=== PATIENT | female | born 1975 | race Caucasian/White ===

== ENCOUNTER 2016-10-18 08:28 | Inpatient (IN) ==
[2016-10-18] MEDS ORDERED: Albuterol 2.5 MG/3 ML NEBULIZER IH ONE (08:49)
[2016-10-18] MEDS ORDERED: D5% in Lactated Ringers 1,000 ML IVC SCH (09:00)
[2016-10-18] MEDS ORDERED: Ringers Solution, Lactated 1,000 ML IVC SCH ×2 (09:15→14:00)
--- NOTE | 2016-10-18 09:15 | Anesthesia Evaluation PreOp ---
Date of Encounter: 10/18/16 Time of Encounter: 09:13 - Past History Planned Operation: tahbso Cardiac History: HTN Pulmonary History: Smoker, Pack/yr (26) FAMILY NURSE History: Seizures (none for a "long time", no meds) Other Medical History: Denies Any Significant HX Anesthesia History: No Prior Anesthetic Complications, Past Anesthesia (btl, lap aly, hta, leep) Test: Negative Alcohol Use: rarely Drug use: none Medications and Allergies Ondansetron ODT [Zofran ODT] 4 mg SL Q6HR PRN #8 tab.rapdis 10/14/16 [Rx] Allergies Penicillins [PCN] Allergy (Verified 07/23/15 13:14) Hives Sulfa (Sulfonamide Antibiotics) Allergy (Verified 07/23/15 13:14) Hives - Meds/Allergy Pre-op Review Medications Reviewed: Yes Allergies Reviewed: Yes Beta Blockers on Current Med List: No Anesthesia Results - Labs Laboratory Tests 07/18/16 10/11/16 10/11/16 06:23 09:34 09:34 Hgb 13.7 Hct 42.3 Plt Count 356 Sodium 137 Potassium 4.2 Creatinine 0.66 Serum , Qual Negative Anesthesia Exam O2 Sat Height 1.52 m Height 1.52 m Height 1.52 m Weight 77.111 kg Weight 77.111 kg Weight 77.111 kg O2 Sat by Pulse Oximetry 97 O2 Sat by Pulse Oximetry 97 Vital Signs Temp Pulse Resp BP Pulse Ox 98.6 F 77 18 134/76 97 10/18/16 08:46 10/18/16 08:46 10/18/16 08:46 10/18/16 08:46 10/18/16 08:46 Height: 1.52 Weight: 77 - HEENT Pupil (Motor): Pupils equal, EOMI Mallampati: II Teeth: Normal Oral Opening: Greater than 3 (good underbite) - FAMILY NURSE LOC: Oriented FAMILY NURSE Motor: Normal RUE, Normal LUE, Normal RLE, Normal LLE, Normal Face FAMILY NURSE Sensory: Normal: RUE, LUE, RLE, LLE, Face - Cardiac Rhythm: Regular Murmur: None - Pulmonary Breath Sounds: bilateral Clear Respiratory Effort: Symmetrical Anesthesia Assess/Plan ASA Score: 2 Modified [place] Scale for Level of Consciousness: Cooperative, oriented, and tranquil Anesthetic Plan: General, Regional Monitoring Plan: Standard Monitors Recovery Plan: PACU
[2016-10-18] MEDS ORDERED: *HR* Propofol 200 MG/20 ML VIAL IVP ONE (09:20)
[2016-10-18] MEDS ORDERED: *HR* Midazolam HCl 2 MG/2 ML VIAL ONE (09:20)
[2016-10-18] MEDS ORDERED: *HR* FentaNYL (PF) 100 MCG/2 ML VIAL ONE (09:20)
[2016-10-18] MEDS ORDERED: Lidocaine -MPF 2% 2 ML VIAL ONE (09:21)
[2016-10-18] MEDS ORDERED: Ondansetron 4 MG/2 ML VIAL ONE (09:21)
[2016-10-18] MEDS ORDERED: Dexamethasone 4 MG/ML VIAL ONE (09:21)
[2016-10-18] MEDS ORDERED: *HR* Rocuronium Bromide 50 MG/5 ML VIAL ONE ×2 (09:21→12:50)
[2016-10-18] MEDS ORDERED: Neostigmine Methylsulfate 3 MG/3 ML SYRINGE ONE (09:21)
[2016-10-18] MEDS ORDERED: *HR* HYDROmorphone (PF) 1 MG/ML SYRINGE IVP PRN (09:30)
[2016-10-18] MEDS ORDERED: *HR* Labetalol 100 MG/20 ML MDV IVP PRN (09:30)
[2016-10-18] MEDS ORDERED: *HR* Promethazine 25 MG/ML VIAL IVP PRN (09:30)
[2016-10-18] MEDS ORDERED: Clindamycin 900 MG/50 ML 900 MG/50 ML IV.SOLN IVPB ONE (09:36)
[2016-10-18] MEDS ORDERED: Gentamicin 120 MG in 0.9 % Sodium Chloride 100 ML IVPB ONE (09:36)
[2016-10-18] MEDS ORDERED: Lidocaine -MPF 4% 5 ML AMPUL ONE (09:42)
--- NOTE | 2016-10-18 09:50 | History & Physical Report ---
Date of Encounter: 10/18/16 Time of Encounter: 09:49 24 Hour HP Update - Instructions Instructions: If the History and Physical is less than 30 days old and was completed prior to A.M. admission and or procedure and has NOT been updated on calendar day of procedure please complete this update prior to performing procedure. - Update Patient reports changes in Medical Condition: No Changes in assessment/condition: No Changes in Medication: No Preop tests/diagnostics Reviewed: Yes Surgery Remains Indicated: Yes Consent for Planned Operative Procedure(s) Verified: Yes - Pre-Operative Checklist Preoperative Checklist Indicated: Yes Prophylactic Antibiotic Ordered: Yes Home Medications Include Beta Ruchi: No Beta Ruchi Taken Today (Day of Surgery): No Beta Ruchi Taken Yesterday (Day Prior to Surgery): No Is VTE Prophylaxis Indicated?: Yes
[2016-10-18] MEDS ORDERED: Bupivacaine/Clonidine Syringe 1 EACH SYRINGE ONE (11:00)
--- NOTE | 2016-10-18 11:47 | Anesthesia Procedures ---
Date of Encounter: 10/18/16 Time of Encounter: 11:45 Procedures: Anesthesia - Nerve Block Procedure Date: 10/18/16 Time: 11:46 Allergies/Adv Reactions: see chart Pre-op Diagnosis: menorrhagia Surgical Procedure: TAHBSO Checklist: Correct Patient Identifier, Correct procedure, History checked Blood Thinner: No Monitor Applied: EKG, BP, Pulse Oximetry Indication: Post Op Analgesia (request per surgeon) Pre-op Neuro Deficits: No Block Type: Other (bilat QL1 ) Catheter placed: No Sterile Technique: Yes Ultrasound used: Yes Anatomy identified: Yes Visual spread of Local: Yes Neuro Stimulation: No Blood on Needle Aspiration: No Smooth Injection of Local: Yes Pain with Injection of Local: No Prep: Chlorhexadine Needle: 21 x 100 mm Stimuplex Local: 0.25% Bupivicaine w/Clonidine 20 mcg/cc Volume (cc): 40 Number of Attempts: 1 Complications: None/effective block Vitals: see or note, block performed post indn
[2016-10-18] MEDS ORDERED: *HR* Morphine 10 MG/ML VIAL ONE (13:45)
[2016-10-18] MEDS ORDERED: Naloxone 0.4 MG/ML INJ IVP PRN (13:50)
--- NOTE | 2016-10-18 13:57 | OB/GYN Procedure Note ---
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 An incision was made into the abdomen down through the subcutaneous tissue, muscular fascia and peritoneum. Once inside the abdominal cavity, a Book Samuel retractor was placed to expose the pelvic cavity with lap sponges. The uterus was then identified and grasped on the fundus with a double-toothed tenaculum with upward traction. The right tube and ovary were surgically absent. The round ligaments on either side were identified and individually dissected and ligated with the Ligasure device. This allowed us to then create a bladder flap by both blunt and sharp dissection. The left fallopian tube and ovarian ligament were isolated through the broad ligament from the uterine body and ligated with the Ligasure divided as well. We then skeletonized the uterine vessels on either side and carefully dissected the bladder flap anteriorly. Posteriorly, the peritoneum was dissected down toward the uterosacral ligaments. Duane clamps were then placed at each isthmic portion of the cervical body junction where the uterine arteries adjoined the uterus. These were clamped, ligated and divided using #0 Vicryl suture. The remainder of the uterus was then removed by the [id number] technique using #0 Vicryl on all major pedicles. With removal of the uterus, the vaginal cuff was closed in the usual manner. Hemostasis was then inspected and secured throughout the entire area. The left ovary were left in situ. The lap sponges were then removed and the self- retaining retractor was removed. The patient tolerated the operation nicely. There were no complications associated with this surgical procedure to this point. The sponge count was correct times 2 at this time. The Chaves catheter was inspected and clear urine was noted. Having removed all instruments and packs, we then began closure of the abdomen. The fascia was closed with #0 Vicryl in a running continuous manner and the subcutaneous tissue was also closed with #3-0 Vicryl in interrupted manner. The skin was closed with #4-0 vicryl. The patient tolerated the operation nicely and was then taken to the Recovery Room in good condition.
--- NOTE | 2016-10-18 14:46 | Anesthesia Evaluation Post Op ---
Date of Encounter: 10/18/16 Time of Encounter: 14:45 - Vital Signs Vital Signs: Vital Signs/O2 Sat/Glucose, Most Current Temp Pulse Resp BP Pulse Ox 10/18/16 14:40 97.5 F L 81 14 126/74 94 L 10/18/16 14:30 97.5 F L 81 16 122/69 93 L 10/18/16 14:20 91 16 124/72 94 L 10/18/16 14:10 90 16 130/73 95 10/18/16 14:00 98.3 F 90 16 122/79 97 - Lungs Lungs: Clear Ascult./Percussion - Airway Airway: Non-obstructed - Cardiovascular Regular Rate - Mental Status Mental Status: Alert & Oriented, Answers Appropriately - Pain Pain Scale: 2 - Nausea Vomiting Nausea Vomiting: Not Present - Hydration Hydration: NPO - Discharge PostOp Status: Transfer Patient to floor
[2016-10-18] MEDS: *HR* OxyCODONE/APAP 5/325 TABLET PO PRN (18:35)
[2016-10-18] MEDS: Ibuprofen 600 MG TABLET PO PRN (20:54)
[2016-10-19 04:50] LABS: Basophils % 0.1 %; Hematocrit 35.7 % (35.3-44.9); Hemoglobin 11.8 g/dL (11.5-15.4); Immature Granulocytes % 0.4 % (0-4); Lymphocytes % 21.1 %; Mean Corpuscular HGB Conc 33.1 g/dL (31.6-35.5); Mean Corpuscular Hemoglobin 26.2 pg (28.0-33.3); Mean Corpuscular Volume 79.2 fL (83.0-100.0); Monocytes # 0.8 K/mcL (0.0-1.3); Monocytes % 5.8 %; Neutrophils # 10.4 K/mcL (1.6-8.9); Platelet Count 312 K/mcL (140-400); Red Blood Count 4.51 M/mcL (3.82-4.97); Red Cell Distribution Width 14.5 % (11.5-14.5); Segmented Neutrophils % 72.6 %
[2016-10-19] MEDS: *HR* OxyCODONE/APAP 5/325 TABLET PO PRN ×3 (06:11→16:19)
[2016-10-19] MEDS: Ibuprofen 600 MG TABLET PO PRN (15:01)
[2016-10-19 16:23] VITALS: BP 157/85
--- NOTE | 2016-10-19 16:39 | Discharge Summary ---
Date of Encounter: 10/19/16 Time of Encounter: 16:40 - Discharge Diagnosis (1) Status post hysterectomy Priority: Primary Status: Acute Comments: patient doing very well, states she wants to go home, ok for discharge, pain meds sent to pharm and printed, will f/u in 2 weeks in office - Discharge Medications Home Medications: No Known Home Drugs 10/18/16 [History] Allergies/Adverse Reactions: Allergies Penicillins [PCN] Allergy (Verified 10/18/16 10:07) See Comments childhood reaction Sulfa (Sulfonamide Antibiotics) Allergy (Verified 10/18/16 10:07) Itching acetaminophen [From Vicodin] Adverse Reaction (Verified 10/18/16 10:07) Vomiting hydrocodone [From Vicodin] Adverse Reaction (Verified 10/18/16 10:07) Vomiting Data Procedures and tests throughout hospitalization: Laboratory Tests 10/19/16 04:22 WBC 14.2 H RBC 4.51 Hgb 11.8 Hct 35.7 MCV 79.2 L MCH 26.2 L MCHC 33.1 RDW 14.5 Plt Count 312 MPV 10.0 Immature Gran % 0.4 Seg Neutrophils % 72.6 Lymphocytes % 21.1 Monocytes % 5.8 Eosinophils % 0.0 Basophils % 0.1 Neutrophils # 10.4 H Lymphocytes # 3.0 Monocytes # 0.8 Eosinophils # 0.0 Basophils # 0.0 Labs on day of discharge: Labs from last 24 hours 10/19/16 04:22 WBC 14.2 H RBC 4.51 Hgb 11.8 Hct 35.7 MCV 79.2 L MCH 26.2 L MCHC 33.1 RDW 14.5 Plt Count 312 MPV 10.0 Immature Gran % 0.4 Seg Neutrophils % 72.6 Lymphocytes % 21.1 Monocytes % 5.8 Eosinophils % 0.0 Basophils % 0.1 Neutrophils # 10.4 H Lymphocytes # 3.0 Monocytes # 0.8 Eosinophils # 0.0 Basophils # 0.0 Date of admission: 10/18/16 15:05 Primary care physician: PCP NO - Patient Status Disposition: Home, Self-Care Condition: Good Functional capacity at discharge: independent ambulation Overall status at discharge: patient is progressing back to baseline - Discharge Instructions Follow Up With: NO,PCP [Primary Care Provider] - Hospital Course GIVER Reason for admission: pelvic pain, other (fiborid uterus) Time Attestation: Total time spent providing and/or coordinating discharge services: Exam - Constitutional Vitals: Temp Pulse Resp BP Pulse Ox 98.6 F 82 16 157/85 95 10/19/16 16:00 10/19/16 16:00 10/19/16 16:00 10/19/16 16:00 10/19/16 07:45 General appearance IM: A&O X 3 - Respiratory Respiratory exam: Present: CTAB - Cardiovascular Cardiovascular exam IM: Present: RRR - GI/Abdominal GI/Abdominal exam IM: normal bowel sounds Incision: intact - Rectal Rectal exam: deferred - Extremities Exam Extremities exam IM: Present: warm - VTE Documentation of Mechanical Device: Intermittent pneumatic compression device
== END 2016-10-19 17:17 | disposition home or self-care (01) | DRG 743 ==
LOC: SAMDAY 08:28 → 1NENUOBS 15:05
PROVIDERS: ADMIT Student in an Organized Health Care Education/Training Program; ATTEND Student in an Organized Health Care Education/Training Program

== ENCOUNTER 2016-11-03 19:14 | Observation (INO) ==
[2016-11-03] MEDS ORDERED: Albuterol 2.5 MG/3 ML NEBULIZER ONE (22:50)
[2016-11-03] MEDS ORDERED: Albuterol 2.5 MG/3 ML NEBULIZER IH ONE (22:51)
[2016-11-03] MEDS ORDERED: Ringers Solution, Lactated 1,000 ML IVC SCH (23:00)
--- NOTE | 2016-11-03 23:18 | Anesthesia Evaluation PreOp ---
Date of Encounter: 11/03/16 Time of Encounter: 23:15 - Past History Planned Operation: Cystoscopy Possible Repair VesicoVaginal Fistula Cardiac History: HTN Pulmonary History: Smoker LEAN SPECIALIST History: Seizures Other Medical History: Denies Any Significant HX Anesthesia History: No Prior Anesthetic Complications : No (MAUREEN) Test: Negative Alcohol Use: rarely Drug use: none Medications and Allergies Ibuprofen [Motrin] 600 mg PO Q6HR PRN #60 tab 10/19/16 [Rx] Allergies Penicillins [PCN] Allergy (Verified 11/03/16 12:40) See Comments childhood reaction Sulfa (Sulfonamide Antibiotics) Allergy (Verified 11/03/16 12:40) Itching acetaminophen [From Vicodin] Adverse Reaction (Verified 11/03/16 12:40) Vomiting hydrocodone [From Vicodin] Adverse Reaction (Verified 11/03/16 12:40) Vomiting - Meds/Allergy Pre-op Review Medications Reviewed: Yes Allergies Reviewed: Yes Beta Blockers on Current Med List: No Anesthesia Results - Labs Laboratory Tests 10/19/16 04:22 Hgb 11.8 Hct 35.7 Plt Count 312 Anesthesia Exam Vital Signs/O2 Sat/Glucose, Most Current Temp Pulse Resp BP Pulse Ox 11/03/16 20:40 98.5 F 78 14 130/84 98 Height: 4'11 Weight: 167 lbs NPO (# of Hours): MN Pain Scale: 0 - HEENT Pupil (Motor): Pupils equal, EOMI Mallampati: II Teeth: Normal Oral Opening: Greater than 3 - LEAN SPECIALIST LOC: Oriented LEAN SPECIALIST Motor: Normal RUE, Normal LUE, Normal RLE, Normal LLE, Normal Face LEAN SPECIALIST Sensory: Normal: RUE, LUE, RLE, LLE, Face - Cardiac Rhythm: Regular Murmur: None JVD: No Carotid Bruit: No - Pulmonary Breath Sounds: bilateral Clear Respiratory Effort: Symmetrical Anesthesia Assess/Plan ASA Score: 2, E Modified [place] Scale for Level of Consciousness: Cooperative, oriented, and tranquil Anesthetic Plan: General Monitoring Plan: Standard Monitors Recovery Plan: PACU (Discussed GA, agrees to proceed)
--- NOTE | 2016-11-03 23:20 | History & Physical Report ---
Date of Encounter: 11/03/16 Time of Encounter: 23:18 24 Hour HP Update - Instructions Instructions: If the History and Physical is less than 30 days old and was completed prior to A.M. admission and or procedure and has NOT been updated on calendar day of procedure please complete this update prior to performing procedure. - Update Patient reports changes in Medical Condition: No Changes in assessment/condition: Yes Changes in Medication: No Preop tests/diagnostics Reviewed: Yes Surgery Remains Indicated: Yes Consent for Planned Operative Procedure(s) Verified: Yes - Pre-Operative Checklist Preoperative Checklist Indicated: Yes Prophylactic Antibiotic Ordered: Yes Home Medications Include Beta Ruchi: No Beta Ruchi Taken Today (Day of Surgery): No Beta Ruchi Taken Yesterday (Day Prior to Surgery): No Is VTE Prophylaxis Indicated?: Yes
[2016-11-03] MEDS ORDERED: *HR* Midazolam HCl 2 MG/2 ML VIAL ONE (23:26)
[2016-11-03] MEDS ORDERED: *HR* FentaNYL (PF) 100 MCG/2 ML VIAL ONE (23:26)
[2016-11-03] MEDS ORDERED: *HR* Propofol 200 MG/20 ML VIAL IVP ONE (23:26)
[2016-11-03] MEDS ORDERED: *HR* Succinylcholine 200 MG/10 ML VIAL IVP ONE (23:27)
[2016-11-03] MEDS ORDERED: Lidocaine -MPF 2% 2 ML VIAL ONE (23:27)
[2016-11-03] MEDS ORDERED: Ondansetron 4 MG/2 ML VIAL ONE (23:27)
[2016-11-03] MEDS ORDERED: Lidocaine -MPF 4% 5 ML AMPUL ONE (23:29)
[2016-11-03] MEDS ORDERED: Famotidine 20 MG/2 ML VIAL ONE (23:32)
[2016-11-03] MEDS ORDERED: Bupivacaine/EPI 1:200k 0.25%PF 30 ML VIAL ONE (23:37)
[2016-11-04] MEDS ORDERED: *HR* FentaNYL (PF) 100 MCG/2 ML VIAL ONE ×2 (01:09→01:46)
[2016-11-04] MEDS ORDERED: *HR* HYDROmorphone (PF) 1 MG/ML SYRINGE IVP PRN (01:41)
[2016-11-04] MEDS ORDERED: *HR* HYDROmorphone 2 MG/ML SYRINGE ONE (03:16)
[2016-11-04] MEDS ORDERED: traMADol 50 MG TABLET PO PRN (06:27)
--- NOTE | 2016-11-04 07:10 | Anesthesia Evaluation Post Op ---
Date of Encounter: 11/04/16 Time of Encounter: 05:50 - Vital Signs Vital Signs: Vital Signs/O2 Sat/Glucose, Most Current Temp Pulse Resp BP Pulse Ox 11/04/16 06:48 98.8 F 90 13 122/80 100 11/04/16 06:09 98.5 F 92 16 133/83 100 11/04/16 05:52 97.2 F L 98 18 142/86 100 11/04/16 05:42 100 16 145/84 100 11/04/16 05:32 97.5 F L 110 16 150/90 100 11/04/16 05:22 106 16 142/83 100 11/04/16 05:12 116 16 148/92 100 11/04/16 05:02 97.8 F 78 10 125/69 100 - Lungs Lungs: Clear Ascult./Percussion - Airway Airway: Non-obstructed - Cardiovascular Regular Rate - Mental Status Mental Status: Asleep with brisk response to light stimulation - Pain Pain Scale: 0 - Nausea Vomiting Nausea Vomiting: Not Present - Hydration Hydration: NPO - Discharge PostOp Status: Transfer Patient to floor
[2016-11-04 08:06] VITALS: BP 115/75
[2016-11-04] MEDS ORDERED: Ibuprofen 600 MG TABLET PO PRN (08:46)
--- NOTE | 2016-11-04 09:38 | OB/GYN Procedure Note ---
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 Narrative: The patient was taken to the OR where general anesthesia was easily obtained. The patient was then prepped and draped in a sterile fashion and placed in dorsal lithotomy position. Adequate exposure of the fistula was made and the fistula size was noted. A cytoscopy was done and showed the defect in the bladder in the posterior wall well away from the trigone. I then turned my attention back to the vagina. The avascular area around the fistula tract was excised and the entire tract was dissected. I was able to delineate the layers of the bladder wall and vagina as well as mobilize the layers. The bladder mucosa was identified and closed with interrupted 3-0 vicryl suture without tension. All sutures were kept in the bladder mucosa. The bladder muscle was closed as well with 3-0 vicryl. With this closure, the fistula was closed over. I performed a cystoscopy and it showed that the fistula was closed over. No sutures were observed to be through the mucosa. I asked the Anesthesiologist to give her methylene blue and before long blue dye was seen flowing through both ureters. I then turned my attention to the vagina mucosa which was closed in interrupted fashion with 3-0 vicryl. The surgical site was hemostatic, there was no leaking of urine observed after several minutes of observation. A car catheter was placed and will remain for 2-4 weeks. The patient tolerated the procedure well and was taken to the recovery room in stable condition.
[2016-11-04] MEDS ORDERED: Ondansetron 4 MG/2 ML VIAL IVP PRN (09:49)
--- NOTE | 2016-11-04 09:53 | Discharge Summary ---
Date of Encounter: 11/04/16 Time of Encounter: 08:30 - Discharge Medications Home Medications: Ibuprofen [Motrin] 600 mg PO Q6HR PRN #60 tab 10/19/16 [Rx] Ciprofloxacin HCl [Cipro] 250 mg PO BID #20 tab 11/10/16 [Rx] Oxycodone HCl/Acetaminophen [Percocet 5-325 mg Tablet] 1 each PO PRN PRN [History] Phenazopyridine [Pyridium] 100 mg PO TID #6 tablet 11/10/16 [Rx] Allergies/Adverse Reactions: Allergies Penicillins [PCN] Allergy (Verified 11/03/16 12:40) See Comments childhood reaction Sulfa (Sulfonamide Antibiotics) Allergy (Verified 11/03/16 12:40) Itching acetaminophen [From Vicodin] Adverse Reaction (Verified 11/03/16 12:40) Vomiting hydrocodone [From Vicodin] Adverse Reaction (Verified 11/03/16 12:40) Vomiting Date of admission: 11/03/16 20:01 Primary care physician: PCP NO - Patient Status Disposition: Home, Self-Care Condition: Good Functional capacity at discharge: independent ambulation Overall status at discharge: patient is progressing back to baseline - Discharge Instructions Instructions: Chaves Catheter Placement and Care (DC), Vesicovaginal Fistula Repair (DC), Urinary Leg Bag (GEN) Follow Up With: Jame Martin MD [Partnered Physician] - (Please call on Saturday so you can schedule your follow up. ) NO,PCP [Primary Care Provider] - Forms: Work/School Release Additional Instructions: There are many types of gynecologic surgery. Below, you will find groups of instructions related to caring for yourself after your procedure. there may be instructions that do not apply to you depending on the procedure that you had. Before you go home, your nurse will explain these instructions and let you know any special instructions that you may have. MEDICATIONS: -Continue taking your home medications as prescribed by your doctor prior to surgery. You will be notified of any changes in home medications before leaving the hospital. -A prescription for pain medication may be given to you. Take it as directed. It is important to control your pain during recovery. -Do not stop taking antibiotics if they were prescribed for you. Take them until they are all gone. Antibiotics are sometimes used to prevent infection after surgery. BOWEL MOVEMENTS: -You may not have a bowel movement for a few days after surgery. The first one may be difficult to pass. Do not strain in order to go, and allow yourself plenty of time when going for the first time following your surgery. -To help soften your stool, eat a diet high in fiber. This includes foods such as cereals, whole grain breads and vegetables. You can also take a fiber supplement or stool softeners, which your provider may prescribe for you. DIET: -Your appetite may be decreased following surgery. You will be eating regular food before you are discharged from the hospital. Start out with small amounts of food and increase your meals as you are able to tolerate them without feeling nauseated. -Eat healthy foods to help you heal more quickly and increase your energy. Avoid foods that cause gas, as this will make you feel uncomfortable. -Drink 6-8 glasses of water each day. SMOKING: -Smoking increases your chances of post-surgical complications. It is never too late to quit. Ask your nurse or provider for information to help you quit smoking. ACTIVITY: -Restrict yourself to light activity and increase your activity level slowly, resting frequently. -Be aware your pain medication may cause drowsiness. -It usually takes 4-8 weeks for the body to heal. -You may walk slowly. Limit stair climbing. Do not exercise until the provider tells you it is safe to do so. -No douching, tampons or sex for 6 weeks. This will allow time for healing. You can no longer get after having a hysterectomy but will still need to protect yourself from sexually transmitted diseases. -Lift nothing heavier than 10-15 pounds for 2 weeks. -You can drive in about 2 weeks, unless otherwise instructed by your provider. -You can expect to return to work or school and other normal activities in about 6 weeks or as directed by your provider. -When you get home, you may shower normally. If you have an incision, wash the area with soap and water and dry thoroughly after showering. You may have steri -strips (thin strips of tape used to help hold the incision together while it heals). If these are present, do not remove them. Keep the area of your incision clean and dry. STRESS AND MOOD -A hysterectomy may change the way that you view yourself. These are normal feelings. Talk to your family and health care provider about these feelings. If you feel depressed, seek counseling or talk to your provider about treatment options. It is important in the healing process to have a healthy mind. WHEN TO CALL THE DOCTOR: -If your stitches are swollen, red or have drainage coming from them or if you notice them coming apart. It is normal for your incision to feel numb up to a year. -If you are having chills, fever or a reaction to your medicine. -If your incision is bleeding or you have increased pain in your incision. -If within an hour you have soaked a sanitary pad with vaginal bleeding. -If you are unable to urinate or it has been 4-6 hours since you have urinated. Also, if you have burning with urination or feel like you cant completely empty your bladder; call your provider for further instructions. -If you have a smelly discharge coming from your incision or vagina. -If you have any questions about your surgery or medications. If you have difficulty breathing, chest pain, uncontrolled bleeding or any other emergency, call 911 or report to the nearest emergency department immediately. Hospital Course MANAGER STATISTICAL PROGRAMMING Time Attestation: Total time spent providing and/or coordinating discharge services: Exam - Constitutional Vitals: Temp Pulse Resp BP Pulse Ox 98.8 F 98 16 115/75 99 11/04/16 06:48 11/04/16 08:05 11/04/16 08:05 11/04/16 08:05 11/04/16 08:05 General appearance IM: A&O X 3 - Respiratory Respiratory exam: Present: CTAB - Cardiovascular Cardiovascular exam IM: Present: RRR - GI/Abdominal GI/Abdominal exam IM: normal bowel sounds
--- NOTE | 2016-11-04 09:57 | OB/GYN History & Physical ---
Date of Encounter: 11/04/16 Time of Encounter: 02:00 Assessment and Plan (1) Vesicovaginal fistula Status: Acute I explained what having a vesicovaginal fistula means and counseled her that I will be taking her to surgery to see if it can be repaired. I recommended doing a cystoscopy and fistula repair using the Lastko technique provided it's not in the trigone. I'll touch base with Dr Fowler who is the Urologist education dean. History of Present Illness HPI: Ms. Zuñiga is a 40 year old female s/p MAUREEN on 10/18 who presented to the ED with complaints of urinary leakage. She reports that it started 2 days ago and has been getting worse. She reports that within minutes her pad is soaked. She does not report bleeding, pelvic pain, foul smelling discharge, fevers, chills, nausea and vomiting. [place] [facility] did a SSE and found urine in the vault and when abdominal pressure was applied suprapubically, more urine leaked into the vagina. When the ED physician contacted me and told me he could not see an actual opening, I asked that she get a car and see me in the office this coming Thursday 03/08. A few hrs later, [facility] called me and said the patient presented there again because the incontinence had worsened and the ER physician confirmed the findings. I asked that he transfer her to [facility] for surgical management. Past Med Surg Social Fam HX - Past Medical History Medical history: GERD, hypertension, other Psychiatric history: depression - Past Surgical History Surgical History: cholecystectomy, hysterectomy - Social History Smoking Status: Current every day smoker Smokeless Tobacco Status: No Alcohol use: rarely Drug use: none Medications and Allergies Ibuprofen [Motrin] 600 mg PO Q6HR PRN #60 tab 10/19/16 [Rx] Allergies Penicillins [PCN] Allergy (Verified 11/03/16 12:40) See Comments childhood reaction Sulfa (Sulfonamide Antibiotics) Allergy (Verified 11/03/16 12:40) Itching acetaminophen [From Vicodin] Adverse Reaction (Verified 11/03/16 12:40) Vomiting hydrocodone [From Vicodin] Adverse Reaction (Verified 11/03/16 12:40) Vomiting Review of System OB All systems PM: reviewed and no additional remarkable complaints except as stated Exam - Vital Signs Vital signs: Initial Vital Signs Temp Pulse Resp BP Pulse Ox 98.5 F 78 14 130/84 98 11/03/16 20:40 11/03/16 20:40 11/03/16 20:40 11/03/16 20:40 11/03/16 20:40 - Constitutional Constitutional: no acute distress - HEENT HEENT: PERRL - Neck Neck exam: supple - Lungs Respiratory exam: CTAB - Cardiovascular Cardiovascular exam: RRR - Abdomen Abdomen: Present: bowel sounds normal - Extremities Extremities exam: warm Results All other labs normal.
== END 2016-11-04 13:42 | disposition home or self-care (01) ==
LOC: 3BNU
PROVIDERS: ADMIT Student in an Organized Health Care Education/Training Program; ATTEND Student in an Organized Health Care Education/Training Program

== ENCOUNTER 2016-12-03 06:21 | Inpatient (IN) ==
[2016-12-03] MEDS ORDERED: Albuterol 2.5 MG/3 ML NEBULIZER IH ONE (06:36)
[2016-12-03] MEDS ORDERED: Lidocaine -MPF 1% 2 ML VIAL ID ONE (06:36)
[2016-12-03] MEDS ORDERED: Levofloxacin 500 MG/100 ML 500 MG/100 ML BAG IVPB ONE (06:36)
[2016-12-03] MEDS ORDERED: Ringers Solution, Lactated 1,000 ML IVC SCH (06:45)
--- NOTE | 2016-12-03 07:04 | Anesthesia Evaluation PreOp ---
Date of Encounter: 12/03/16 Time of Encounter: 07:02 - Past History Planned Operation: Vesicovaginal Fistula Repair Cardiac History: Denies any Significant Hx Pulmonary History: Smoker (26 years) PATIENT ACCESS DIRECTOR History: Seizures (remote history, not medically treated) Other Medical History: Denies Any Significant HX Anesthesia History: No Prior Anesthetic Complications, Past Anesthesia ( hysterectomy) Alcohol Use: none Drug use: none Medications and Allergies Ciprofloxacin [Cipro] 250 mg PO BID 11/15/16 [History] Ibuprofen [Motrin] 600 mg PO Q6HR PRN 11/15/16 [History] OxyCODONE/APAP 5/325 [Percocet 5/325 MG] 1 each PO Q6HR PRN 11/15/16 [History] Cefuroxime PO [Ceftin] 500 mg PO Q12HR #20 tablet 11/19/16 [Rx] Allergies Penicillins [PCN] Allergy (Verified 11/03/16 12:40) See Comments childhood reaction Sulfa (Sulfonamide Antibiotics) Allergy (Verified 11/03/16 12:40) Itching acetaminophen [From Vicodin] Adverse Reaction (Verified 11/03/16 12:40) Vomiting hydrocodone [From Vicodin] Adverse Reaction (Verified 11/03/16 12:40) Vomiting - Meds/Allergy Pre-op Review Medications Reviewed: Yes Allergies Reviewed: Yes Beta Blockers on Current Med List: No Anesthesia Results - Labs Laboratory Tests 07/18/16 11/18/16 11/18/16 06:23 23:49 23:49 WBC 5.1 Hgb 11.5 Hct 34.3 L Plt Count 246 PT 12.2 H INR 1.1 Sodium 138 Potassium 3.4 L BUN 8 Creatinine 0.72 - Imaging EKG: report reviewed (07/18/2016 SR) Anesthesia Exam O2 Sat Height 1.52 m Height 1.52 m Height 1.52 m Weight 76.657 kg Weight 76.657 kg Weight 76.657 kg O2 Sat by Pulse Oximetry 97 Vital Signs Temp Pulse Resp BP Pulse Ox 97.7 F 84 16 116/69 97 12/03/16 07:12 12/03/16 07:12 12/03/16 07:12 12/03/16 07:12 12/03/16 07:12 Height: 5' Weight: 169 lbs NPO (# of Hours): 8 Pain Scale: 0 Pain Scale Used: Numeric (1 - 10) - HEENT Pupil (Motor): EOMI Mallampati: II Teeth: Normal Oral Opening: Greater than 3 - PATIENT ACCESS DIRECTOR LOC: Oriented PATIENT ACCESS DIRECTOR Motor: Normal RUE, Normal LUE, Normal RLE, Normal LLE, Normal Face PATIENT ACCESS DIRECTOR Sensory: Normal: RUE, LUE, RLE, LLE, Face - Cardiac Rhythm: Regular Murmur: None - Pulmonary Breath Sounds: bilateral Clear Respiratory Effort: Symmetrical Anesthesia Assess/Plan ASA Score: 2 Modified Vannessa Scale for Level of Consciousness: Cooperative, oriented, and tranquil Anesthetic Plan: General Monitoring Plan: Standard Monitors Recovery Plan: PACU
[2016-12-03] MEDS ORDERED: *HR* FentaNYL (PF) 100 MCG/2 ML VIAL ONE ×2 (07:06→08:41)
[2016-12-03] MEDS ORDERED: *HR* Midazolam HCl 2 MG/2 ML VIAL ONE (07:07)
[2016-12-03] MEDS ORDERED: *HR* Propofol 200 MG/20 ML VIAL IVP ONE (07:07)
[2016-12-03] MEDS ORDERED: *HR* Rocuronium Bromide 50 MG/5 ML VIAL ONE (07:09)
[2016-12-03] MEDS ORDERED: *HR* Succinylcholine 200 MG/10 ML VIAL IVP ONE (07:09)
[2016-12-03] MEDS ORDERED: *HR* Phenylephrine 10 MG/ML VIAL ONE (07:10)
--- NOTE | 2016-12-03 07:11 | History & Physical Report ---
Date of Encounter: 12/03/16 Time of Encounter: 07:11 24 Hour HP Update - Instructions Instructions: If the History and Physical is less than 30 days old and was completed prior to A.M. admission and or procedure and has NOT been updated on calendar day of procedure please complete this update prior to performing procedure. - Update Patient reports changes in Medical Condition: No Changes in examination, assessment, or condition: No Changes in Medication: No Preop tests/diagnostics Reviewed: Yes Surgery Remains Indicated: Yes Consent for Planned Operative Procedure(s) Verified: Yes - Pre-Operative Checklist Preoperative Checklist Indicated: Yes Prophylactic Antibiotic Ordered: Yes Is VTE Prophylaxis Indicated?: Yes
[2016-12-03] MEDS ORDERED: Lidocaine -MPF 4% 5 ML AMPUL ONE (07:15)
[2016-12-03] MEDS ORDERED: Ondansetron 4 MG/2 ML VIAL ONE (08:11)
[2016-12-03] MEDS ORDERED: Dexamethasone 4 MG/ML VIAL ONE (08:11)
[2016-12-03] MEDS ORDERED: *HR* HYDROmorphone (PF) 1 MG/ML SYRINGE IVP PRN (08:25)
[2016-12-03] MEDS ORDERED: *HR* Promethazine 25 MG/ML VIAL IVP PRN (08:25)
[2016-12-03] MEDS ORDERED: *HR* HYDROmorphone 2 MG/ML SYRINGE ONE (09:04)
[2016-12-03] MEDS ORDERED: Neostigmine Methylsulfate 3 MG/3 ML SYRINGE ONE (09:16)
--- NOTE | 2016-12-03 11:32 | Operative Note ---
Date of procedure: 12/03/16 Pre-op diagnosis: Vesicovaginal fistula Post-op diagnosis: same Procedure: Vesicovaginal fistula repair abdominal approach, cystoscopy Anesthesia: DOMO Surgeon: Arnold Camp Flute Polisher: Demarco Morgan Specimen: Vesicovaginal fistula Condition: stable Disposition: PACU Procedure in Detail: Patient was prepped and draped in normal sterile fashion. Timeout procedure performed. At this point I then inserted the cystoscope into the patient's bladder. I could easily visualize the fistula in the posterior trigone just cranially to the ureteral orifices. I placed a Chaves catheter in the patient's bladder. Through the patient's prior Pfannenstiel incision I made an incision down to the fascia. The fascia was then incised. The fascia was then elevated off the rectus muscle. Access to the peritoneal cavity was then obtained using Metzenbaum scissors. Small amount of adhesions from the omentum were noted. I did note that I had excellent omental length which would come in handy for the interposition later. At this point the Bookwalter retractor was placed in standard fashion. Catheter was palpated within the bladder. Then made an incision in the bladder. The incision was carried posteriorly towards the fistulous opening. The left ovary was adherent to the left lateral aspect of the bladder. This was carefully dissected off. The area between the bladder and the vagina densely adherent and inflamed. Careful dissection was performed to separate the 2. There was a small sigmoid adhesion which was taken down. We then placed a sizer into the vagina. Which aided in our palpation of the vaginal opening. The ureters were quite close to the opening. We then placed open-ended ureteral catheters in each ureteral orifice. The vaginal opening was closed using 2-0 Vicryl. Secondary to the inflammation was only able to get a single layer of closure on the vaginal mucosa. At this point I then placed 3 mL of Evaceal onto the vaginal incision. We then removed part of the Bookwalter and obtained our omental flap. I placed one stitch in the omentum and then stitched this down to the notch between the bladder and the vagina. This sufficiently covered the vaginal incision. The edges of the bladder where the fistula was present were excised. This was sent for pathological evaluation. I then proceeded to reapproximate the bladder mucosa using a running 4-0 Monocryl. I carried this all the way around the bladder. 18- Romansh catheter was then placed in the bladder. I then added a second layer of closure starting at the anterior aspect of the bladder carrying as far posteriorly as I felt safe. 7 MARGARETH drain was then placed. The abdominal muscle was then reapproximated using 3-0 Vicryl. Fascia was then closed using a running looped 0 PDS. Subcutaneous tissue was then closed using running 3-0 Vicryl. This was done after the subcutaneous tissue was irrigated. Skin was closed using brian.
[2016-12-03] MEDS ORDERED: *HR* Morphine 2 MG/ML SYRINGE IVP PRN (11:54)
[2016-12-03] MEDS ORDERED: *HR* Belladonna Alkaloids/Opium 60 MG RECTAL SUPPOSITORY RC PRN (11:54)
[2016-12-03] MEDS ORDERED: *HR* Promethazine 25 MG/ML VIAL IV PRN (11:54)
[2016-12-03] MEDS ORDERED: Naloxone 0.4 MG/ML INJ IVP PRN (11:54)
--- NOTE | 2016-12-03 11:56 | Anesthesia Evaluation Post Op ---
Date of Encounter: 12/03/16 Time of Encounter: 11:45 - Vital Signs Vital Signs: Last Vital Signs Temp 98.4 F 12/03/16 11:42 Pulse 95 12/03/16 11:42 Resp 12 12/03/16 11:42 BP 147/88 12/03/16 11:42 Pulse Ox 98 12/03/16 11:42 - Lungs Lungs: Clear Ascult./Percussion - Airway Airway: Non-obstructed - Cardiovascular Regular Rate - Mental Status Mental Status: Alert & Oriented, Answers Appropriately - Pain Pain Scale: 6 Pain Scale used: Numeric (1 - 10) - Nausea Vomiting Nausea Vomiting: Not Present - Hydration Hydration: Ice chips, Chaves catheter - Discharge PostOp Status: Transfer Patient to floor Attestation: Patient communicative and alert. Meets criteria for floor transfer.
[2016-12-03] MEDS: 0.9 % Sodium Chloride 1,000 ML IVC SCH ×2 (12:22→20:06)
[2016-12-03] MEDS: Hyoscyamine SL 0.125 MG TAB.SUBL SL SCH ×2 (15:37→22:04)
[2016-12-03] MEDS: *HR* OxyCODONE/APAP 5/325 TABLET PO PRN (22:07)
[2016-12-03] MEDS: Nicotine 21 MG PATCH.TD24 TD SCH (22:46)
[2016-12-04] MEDS: *HR* OxyCODONE/APAP 5/325 TABLET PO PRN ×4 (02:59→20:59)
[2016-12-04 06:26] LABS: Basophils % 0.3 %; Hematocrit 33.7 % (35.3-44.9); Hemoglobin 10.9 g/dL (11.5-15.4); Immature Granulocytes % 0.4 % (0-4); Lymphocytes # 2.8 K/mcL (0.6-4.6); Lymphocytes % 25.1 %; Mean Corpuscular HGB Conc 32.3 g/dL (31.6-35.5); Mean Corpuscular Hemoglobin 24.9 pg (28.0-33.3); Mean Corpuscular Volume 77.1 fL (83.0-100.0); Mean Platelet Volume 9.9 fL (9.4-12.4); Monocytes # 0.7 K/mcL (0.0-1.3); Monocytes % 5.8 %; Neutrophils # 7.7 K/mcL (1.6-8.9); Platelet Count 343 K/mcL (140-400); Red Blood Count 4.37 M/mcL (3.82-4.97); Red Cell Distribution Width 14.2 % (11.5-14.5); Segmented Neutrophils % 68.4 %
[2016-12-04 06:32] LABS: BUN/Creatinine Ratio 13 (6-26); Blood Urea Nitrogen 9 mg/dL (7-20); Calcium 8.3 mg/dL (8.6-10.8); Carbon Dioxide 24 mEq/L (19-29); Chloride 104 mEq/L (98-109); Glucose 125 mg/dL (70-99); Osmolality,Calculated 280 (280-300); Potassium 3.5 mEq/L (3.5-4.5); Sodium 135 mEq/L (136-145); eGFR For African Americans > 60 (> 60); eGFR For Non-African Americans > 60 (> 60)
--- NOTE | 2016-12-04 07:33 | Urology Progress Note ---
Date of Encounter: 12/04/16 Time of Encounter: 07:31 - Assessment and Plan (1) Vesicovaginal fistula Current Visit: Yes Status: Acute Assessment and plan: continue ambulation. IS as needed. regular diet. catheter will stay in place for at least 2 weeks becuase of recent bladder surgery Progress Note Narrative: POD 1 from vesicovaginal fistula repair. pain better. iv came out last night. jodie liquids and a little solids Objective Initial Vital Signs Temp Pulse Resp BP Pulse Ox 97.7 F 84 16 116/69 97 12/03/16 07:12 12/03/16 07:12 12/03/16 07:12 12/03/16 07:12 12/03/16 07:12 - General physical appearance Present: well developed - Abdomen Present: soft - Labs 12/04/16 06:06 12/04/16 06:06 Diabetes panel 12/04/16 Range/Units 06:06 Sodium 135 L (136-145) mEq/L Potassium 3.5 (3.5-4.5) mEq/L Chloride 104 (98-109) mEq/L Carbon Dioxide 24 (19-29) mEq/L BUN 9 (7-20) mg/dL Creatinine 0.67 (0.57-1.11) mg/dL Glucose 125 H (70-99) mg/dL Calcium 8.3 L (8.6-10.8) mg/dL Calcium panel 12/04/16 Range/Units 06:06 Calcium 8.3 L (8.6-10.8) mg/dL Pituitary panel 12/04/16 Range/Units 06:06 Sodium 135 L (136-145) mEq/L Potassium 3.5 (3.5-4.5) mEq/L Chloride 104 (98-109) mEq/L Carbon Dioxide 24 (19-29) mEq/L BUN 9 (7-20) mg/dL Creatinine 0.67 (0.57-1.11) mg/dL Glucose 125 H (70-99) mg/dL Calcium 8.3 L (8.6-10.8) mg/dL Adrenal panel 12/04/16 Range/Units 06:06 Sodium 135 L (136-145) mEq/L Potassium 3.5 (3.5-4.5) mEq/L Chloride 104 (98-109) mEq/L Carbon Dioxide 24 (19-29) mEq/L BUN 9 (7-20) mg/dL Creatinine 0.67 (0.57-1.11) mg/dL Glucose 125 H (70-99) mg/dL Calcium 8.3 L (8.6-10.8) mg/dL - VTE Documentation of Mechanical Device: Intermittent pneumatic compression device Consult Discharge Plan - Plan Referrals: NO,PCP [Primary Care Provider] -
[2016-12-04] MEDS: Hyoscyamine SL 0.125 MG TAB.SUBL SL SCH ×3 (09:44→21:32)
[2016-12-04] MEDS: Nicotine 21 MG PATCH.TD24 TD SCH (21:32)
[2016-12-05] MEDS: *HR* OxyCODONE/APAP 5/325 TABLET PO PRN ×4 (03:04→20:30)
--- NOTE | 2016-12-05 07:22 | Urology Progress Note ---
Date of Encounter: 12/05/16 Time of Encounter: 07:20 - Assessment and Plan (1) Vesicovaginal fistula Current Visit: Yes Status: Acute Assessment and plan: pt is getting close to discharge. waiting on flatus but otherwise doing well. ok to shower. will remove MARGARETH before DC. Progress Note Subjective: feels better Narrative: no flatus. tolerating PO well Objective Initial Vital Signs Temp Pulse Resp BP Pulse Ox 97.7 F 84 16 116/69 97 12/03/16 07:12 12/03/16 07:12 12/03/16 07:12 12/03/16 07:12 12/03/16 07:12 - General physical appearance Present: well developed, no distress - Abdomen Present: soft, surgical scars (brian in place. no erythema. dressings removed. drain scant) - Labs 12/04/16 06:06 12/04/16 06:06 - VTE Documentation of Mechanical Device: Intermittent pneumatic compression device Consult Discharge Plan - Plan Referrals: NO,PCP [Primary Care Provider] -
[2016-12-05] MEDS: Hyoscyamine SL 0.125 MG TAB.SUBL SL SCH ×3 (07:55→22:23)
[2016-12-05] MEDS ORDERED: Bisacodyl 10 MG RECTAL SUPPOSITORY RC PRN (12:48)
[2016-12-06] MEDS: *HR* OxyCODONE/APAP 5/325 TABLET PO PRN (04:55)
--- NOTE | 2016-12-06 07:14 | Discharge Summary ---
Date of Encounter: 12/06/16 Time of Encounter: 07:12 - Discharge Diagnosis (1) Vesicovaginal fistula Priority: Primary Status: Acute - Discharge Medications Prescriptions: OxyCODONE/APAP 5/325 [Percocet 5/325 MG] 1 each PO Q4HR PRN #20 tablet PRN Reason: pain 1-6 Hyoscyamine SL [Levsin Sl] 0.125 mg SL TID PRN #30 tab.subl PRN Reason: bladder spasms Oxybutynin [Ditropan] 5 mg PO TID PRN #40 tablet PRN Reason: bladder spasms Home Medications: Ibuprofen [Motrin] 600 mg PO Q6HR PRN 11/15/16 [History] Hyoscyamine SL [Levsin Sl] 0.125 mg SL TID PRN #30 tab.subl 12/06/16 [Rx] OxyCODONE/APAP 5/325 [Percocet 5/325 MG] 1 each PO Q4HR PRN #20 tablet 12/06/16 [Rx] Oxybutynin [Ditropan] 5 mg PO TID PRN #40 tablet 12/06/16 [Rx] Allergies/Adverse Reactions: Allergies Penicillins [PCN] Allergy (Verified 12/03/16 07:28) See Comments childhood reaction Sulfa (Sulfonamide Antibiotics) Allergy (Verified 12/03/16 07:28) Itching,SHORTNESS OF BREATH acetaminophen [From Vicodin] Adverse Reaction (Verified 12/03/16 07:28) Vomiting hydrocodone [From Vicodin] Adverse Reaction (Verified 12/03/16 07:28) Vomiting Procedures and tests throughout hospitalization: vesicovaginal fistula repair on 12/03/16 Date of admission: 12/03/16 11:52 Primary care physician: PCP YUSUF Discharging clinician: Arnold Camp Anticipated date of discharge: 12/06/16 - Patient Status Disposition: Home, Self-Care Condition: Good Overall status at discharge: patient is progressing back to baseline - Discharge Instructions Follow Up With: YUSUF,PCP [Primary Care Provider] - Arnold Camp MD [Partnered Physician] - (12/14/16 in [place] ) - Diet and Activity Activity: increase activity as tolerated (no heavy lifting more than 10lbs until 4 weeks from date of surgery. ) Diet: advance to your usual diet - Hospital Course Hospital course: Ms. Zuñiga is a 41 year old female with history of vesicovaginal fistula sp repair with omental interposition. The patient had a good recovery course. ambulated early. jodie diet. 3 BMs day before dc. pain well controlled. good uop. minimal drain output. Time spent discussing smoking cessation with patient: 3 to 10 minutes - Time Spent with Patient Total time spent providing and/or coordinating discharge services: Less than 30 minutes Exam Initial Vital Signs Temp Pulse Resp BP Pulse Ox 97.7 F 84 16 116/69 97 12/03/16 07:12 12/03/16 07:12 12/03/16 07:12 12/03/16 07:12 12/03/16 07:12 - General physical appearance Present: well developed - Eyes Present: PERRL - ENT Present: normal nares - Neck Present: no masses - Respiratory Present: normal respiratory effort - Cardiovascular Cardiovascular exam IM: RRR - Abdomen Abdomen: Present: soft (inc c/d/i) - VTE Documentation of Mechanical Device: Intermittent pneumatic compression device
[2016-12-06 09:18] VITALS: BP 114/81
== END 2016-12-06 08:15 | disposition home or self-care (01) | DRG 514 ==
LOC: SAMDAY 06:21 → 1NENUOBS 11:52
PROVIDERS: ADMIT Urology; ATTEND Urology

== ENCOUNTER 2019-12-18 14:25 | Observation (INO) ==
[2019-12-18] MEDS ORDERED: Aspirin 81 MG TAB.CHEW PO ONE (14:39)
[2019-12-18 14:57] LABS: Basophils # 0.1 K/mcL (0.0-0.2); Basophils % 0.7 %; Eosinophils # 0.1 K/mcL (0.0-0.6); Eosinophils % 1.2 %; Hematocrit 43.3 % (35.3-44.9); Hemoglobin 14.2 g/dL (11.5-15.4); Immature Granulocytes % 0.4 % (0-4); Lymphocytes # 3.9 K/mcL (0.6-4.6); Lymphocytes % 37.7 %; Mean Corpuscular HGB Conc 32.8 g/dL (31.6-35.5); Mean Corpuscular Hemoglobin 27.8 pg (28.0-33.3); Mean Corpuscular Volume 84.9 fL (83.0-100.0); Monocytes # 0.7 K/mcL (0.0-1.3); Monocytes % 6.5 %; Neutrophils # 5.6 K/mcL (1.6-8.9); Platelet Count 358 K/mcL (140-400); Red Cell Distribution Width 13.2 % (11.5-14.5); Segmented Neutrophils % 53.5 %; White Blood Count 10.4 K/mcL (4.3-11.1)
[2019-12-18 14:59] LABS: INR 1.1
[2019-12-18 15:01] LABS: Activated Partial Thrombo Time 28.6 Seconds (26.0-36.0)
[2019-12-18] MEDS: Nitroglycerin 0.4 MG TAB.SUBL SL PRN ×3 (15:02→15:16)
[2019-12-18 15:16] LABS: BUN/Creatinine Ratio 21 (6-26); Blood Urea Nitrogen 12 mg/dL (6-20); Calcium 9.2 mg/dL (8.6-10.3); Carbon Dioxide 28 mEq/L (23-29); Chloride 99 mEq/L (98-107); Glucose 97 mg/dL (70-105); Osmolality,Calculated 280 (280-300); Potassium 3.4 mEq/L (3.5-5.1); Sodium 135 mEq/L (136-145); Troponin I < 0.03 ng/mL (< 0.04); eGFR For African Americans > 60 (> 60); eGFR For Non-African Americans > 60 (> 60)
[2019-12-18] MEDS ORDERED: Naloxone 0.4 MG/ML INJ IVP PRN (17:20)
[2019-12-18] MEDS: *HR* Heparin 5,000 UNIT/ML VIAL SQ SCH (18:45)
[2019-12-19] MEDS: *HR* Heparin 5,000 UNIT/ML VIAL SQ SCH ×2 (05:36→16:55)
[2019-12-19 06:12] LABS: Hematocrit 41.3 % (35.3-44.9); Hemoglobin 13.8 g/dL (11.5-15.4); Mean Corpuscular HGB Conc 33.4 g/dL (31.6-35.5); Mean Corpuscular Hemoglobin 28.6 pg (28.0-33.3); Mean Corpuscular Volume 85.5 fL (83.0-100.0); Platelet Count 327 K/mcL (140-400); Red Blood Count 4.83 M/mcL (3.82-4.97); Red Cell Distribution Width 13.2 % (11.5-14.5); White Blood Count 9.3 K/mcL (4.3-11.1)
[2019-12-19 06:28] LABS: Chol/HDL Ratio 6.5 (0-4.9)
[2019-12-19 06:31] LABS: BUN/Creatinine Ratio 28 (6-26); Blood Urea Nitrogen 15 mg/dL (6-20); Calcium 8.9 mg/dL (8.6-10.3); Carbon Dioxide 25 mEq/L (23-29); Chloride 102 mEq/L (98-107); Glucose 99 mg/dL (70-105); Osmolality,Calculated 281 (280-300); Potassium 3.5 mEq/L (3.5-5.1); Sodium 135 mEq/L (136-145); eGFR For African Americans > 60 (> 60); eGFR For Non-African Americans > 60 (> 60)
[2019-12-19] MEDS ORDERED: Regadenoson 0.4 MG/5 ML SYRINGE IVP ONE (07:44)
[2019-12-19 08:27] LABS: Albumin 4.1 g/dL (3.5-5.7); Albumin/Globulin Ratio 1.3 (1.1-2.2); Bilirubin,Direct 0.1 mg/dL (0.0-0.2); Bilirubin,Indirect 0.3 mg/dL (0.0-1.0); Bilirubin,Total 0.4 mg/dL (0.3-1.0); Globulin 3.1 g/dL (2.4-3.5); Total Protein 7.2 g/dL (6.4-8.9)
[2019-12-19] MEDS ORDERED: lisinopriL 20 MG TABLET PO SCH (09:00)
[2019-12-19] MEDS ORDERED: hydroCHLOROthiazide 25 MG TABLET PO SCH (09:00)
[2019-12-19] MEDS ORDERED: Spironolactone 25 MG TABLET PO SCH (09:00)
[2019-12-19] MEDS ORDERED: Metoprolol XL (24 HR) Succ 25 MG TAB.ER.24H PO SCH (09:00)
[2019-12-19 15:33] VITALS: BP 105/69
[2019-12-19] MEDS ORDERED: amLODIPine 5 MG TABLET PO SCH (21:00)
== END 2019-12-19 17:22 | disposition home or self-care (01) ==
LOC: EMEROOARM 14:25 → 3BNU 14:25
PROVIDERS: ADMIT Internal Medicine; ATTEND Internal Medicine